=== PATIENT | female | born 1985 | race Caucasian/White ===

== ENCOUNTER 2016-11-23 11:21 | Emergency (ER) | payer MEDICAID, OTHER ==
[~2016-11-23] VITALS: Ht 165.1 cm; Wt 72.6 kg
[~2016-11-23 11:21] MED LIST: PREN-234 PO
[2016-11-23 11:34] VITALS: BP 149/89
--- NOTE | 2016-11-23 11:39 | NUR ---
Patient ambulated to bed 4. RN evaluating patient at bedside.
--- NOTE | 2016-11-23 11:40 | NUR ---
Dr. Lombardo evaluating patient at bedside.
[2016-11-23] MEDS ORDERED: KETOROLAC 60 MG/2 ML VIAL IM ONE (11:45)
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
--- NOTE | 2016-11-23 12:10 | NUR ---
Patient discharged with v/s stable. Written and verbal after care instructions given and explained. Patient alert, oriented and verbalized understanding of instructions. Ambulatory with steady gait. All questions addressed prior to discharge. ID band removed. Patient advised to follow up with PMD. Rx of MOTRIN,BACTRIM AND KEFLEX given. Patient educated on indication of medication including possible reaction and side effects. Opportunity to ask questions provided and answered.ADVISED PT NOT TO PRICK HER PIMPLES TO AVOID INFECTION;
[2016-11-23 12:12] VITALS: BP 149/89
== END 2016-11-23 12:10 | disposition home or self-care (01) ==
LOC: MED 11:21
DX: K13.0 Diseases of lips (principal); F17.210 Nicotine dependence, cigarettes, uncomplicated; Z90.49 Acquired absence of other specified parts of digestive tract
CPT/HCPCS: 96372; 99283; J1885

== ENCOUNTER 2016-11-27 22:37 | Emergency (ER) | payer OTHER ==
[~2016-11-27] VITALS: Ht 165.1 cm; Wt 72.6 kg
[2016-11-27 22:53] VITALS: BP 114/70
--- NOTE | 2016-11-27 23:18 | NUR ---
PT TAKEN TO [facility] FROM [facility]
--- NOTE | 2016-11-27 23:25 | NUR ---
PT RETURN FROM XRAY
--- NOTE | 2016-11-28 00:42 | NUR ---
PT TAKEN TO BED 6
--- NOTE | 2016-11-28 00:44 | NUR ---
Dr. Lr evaluating patient at bedside.
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
[2016-11-28] MEDS ORDERED: NEOMYCIN/POLYMYXIN/BACITRACIN OPTH OINT 3.5 GM TUBE OP SCH (00:50)
[2016-11-28] MEDS ORDERED: NEOMYCIN/POLYMYXIN/BACITRACIN 0.9 GM/1 PKT TP ONE (01:06)
[2016-11-28 01:30] VITALS: BP 111/65
--- NOTE | 2016-11-28 01:30 | NUR ---
Patient discharged with v/s stable BY DR. BOUDREAUX. Written and verbal after care instructions given and explained. Patient verbalized understanding. Ambulatory with steady gait. All questions addressed prior to discharge. Advised to follow up with PMD.
== END 2016-11-28 01:30 | disposition home or self-care (01) ==
LOC: MED 22:37
DX: S60.222A Contusion of left hand, initial encounter (principal); S50.311A Abrasion of right elbow, initial encounter; S80.211A Abrasion, right knee, initial encounter; V89.9XXA Person injured in unspecified vehicle accident, initial encounter; Y93.89 Activity, other specified; Y92.89 Other specified places as the place of occurrence of the external cause; Y99.8 Other external cause status
CPT/HCPCS: 73130; 99284

== ENCOUNTER 2017-01-19 16:13 | Emergency (ER) | payer MEDICAID, OTHER ==
[~2017-01-19] VITALS: Ht 160 cm; Wt 95.0 kg
[2017-01-19 16:18] VITALS: BP 149/89
--- NOTE | 2017-01-19 17:53 | NUR ---
Patient transferred to bed 8 via wheelchair by tech, accompanied by family. DISCHARGE DOOR OPERATOR evaluating patient at bedside.
--- NOTE | 2017-01-19 18:13 | NUR ---
31/ c/o left ankle pain s/p slip and fall yesterday. Swelling noted to left ankle. CMS intact. Patient is AOx4, VSS.
[2017-01-19 18:17] VITALS: BP 128/81
--- NOTE | 2017-01-19 18:18 | NUR ---
Patient discharged with v/s stable. Written and verbal after care instructions given and explained. Patient alert, oriented and verbalized understanding of instructions. Ambulatory with steady gait. All questions addressed prior to discharge. ID band removed. Patient advised to follow up with PMD. Rx of MOTRIN 800 MG TID PO given. Patient educated on indication of medication including possible reaction and side effects. Opportunity to ask questions provided and answered.
== END 2017-01-19 18:18 | disposition home or self-care (01) ==
LOC: MED 16:13
DX: S93.402A Sprain of unspecified ligament of left ankle, initial encounter (principal); W01.0XXA Fall on same level from slipping, tripping and stumbling without subsequent striking against object, initial encounter; Y93.89 Activity, other specified; Y92.89 Other specified places as the place of occurrence of the external cause; Y99.8 Other external cause status
CPT/HCPCS: 73610; 81002; 81025; 99284

== ENCOUNTER 2017-03-19 09:18 | Emergency (ER) | payer MEDICAID ==
[~2017-03-19] VITALS: Ht 165.1 cm; Wt 104.3 kg
[2017-03-19 09:41] VITALS: BP 155/91
--- NOTE | 2017-03-19 09:47 | NUR ---
Patient ambulated to bed 6. RN evaluating patient at bedside.
--- NOTE | 2017-03-19 09:50 | NUR ---
PT PRESENTS TO ER FOR EVALUATION OF ABSCESS TO LEFT FOREARM X4 DAYS. DENIES N/V/D; SKIN IS PINK/WARM/DRY; AAOX4 WITH EVEN AND STEADY GAIT; LUNGS CLEAR BL; HR EVEN AND REGULAR; PT DENIES ANY FEVER, CP, SOB, OR COUGH AT THIS TIME; PATIENT STATES PAIN OF 10/10 AT THIS TIME; VSS; PATIENT POSITIONED FOR COMFORT; HOB ELEVATED; BEDRAILS UP X2; BED DOWN. ER MD MADE AWARE OF PT STATUS.
--- NOTE | 2017-03-19 10:21 | NUR ---
Dr. Sim evaluating patient at bedside.
[2017-03-19 10:37] VITALS: BP 158/95
--- NOTE | 2017-03-19 10:37 | NUR ---
Patient discharged with v/s stable. Written and verbal after care instructions given and explained. Patient alert, oriented and verbalized understanding of instructions. Ambulatory with steady gait. All questions addressed prior to discharge. ID band removed. Patient advised to follow up with PMD. Rx of BACTRIM, KEFLEX given. Patient educated on indication of medication including possible reaction and side effects. Opportunity to ask questions provided and answered.
== END 2017-03-19 10:37 | disposition home or self-care (01) ==
LOC: MED 09:18
DX: L03.114 Cellulitis of left upper limb (principal)
CPT/HCPCS: 99284

== ENCOUNTER 2017-03-27 15:32 | Emergency (ER) | payer MEDICAID ==
[~2017-03-27] VITALS: Ht 165.1 cm; Wt 104.3 kg
[2017-03-27 15:48] VITALS: BP 154/96
--- NOTE | 2017-03-27 15:59 | NUR ---
Patient ambulated to bed 6. RN evaluating patient at bedside.
--- NOTE | 2017-03-27 16:00 | NUR ---
PT PRESENTS TO ER FOR EVALUATION OF ABSCESS TO LEFT FOREARM X2 WEEKS.AAOX4 WITH EVEN AND STEADY GAIT; LUNGS CLEAR BL; HR EVEN AND REGULAR; PT DENIES ANY FEVER, CP, SOB, OR COUGH AT THIS TIME; PATIENT STATES PAIN OF 0/10 AT THIS TIME; VSS; PATIENT POSITIONED FOR COMFORT; HOB ELEVATED; BEDRAILS UP X2; BED DOWN. ER MD MADE AWARE OF PT STATUS.
--- NOTE | 2017-03-27 16:07 | NUR ---
Patient being evaluated by DR KO at bedside.
[2017-03-27] MEDS ORDERED: LIDOCAINE 1% 500 MG/50 ML VIAL INJ ONE (16:10)
--- NOTE | 2017-03-27 16:20 | NUR ---
I&D TO [facility] DONE BY DR KO. PT TOLERATED PROCEDURE WELL.
--- NOTE | 2017-03-27 16:24 | NUR ---
WOUND DRESSING DONE BY ASHLEY TORRES.
[2017-03-27 16:28] VITALS: BP 154/96
--- NOTE | 2017-03-27 16:29 | NUR ---
Note bernard in ED - 03/27/17 at 1630 by [facility] Patient discharged with v/s stable. Written and verbal after care instructions given and explained. Patient verbalized understanding. Ambulatory with steady gait. All questions addressed prior to discharge. Advised to follow up with PMD.
--- NOTE | 2017-03-27 16:30 | NUR ---
Patient discharged with BP 164/96; DENIES HEADACHE OR DIZZINESS AT THIS TIME; MD MADE AWARE. Written and verbal after care instructions given and explained. Patient verbalized understanding. Ambulatory with steady gait. All questions addressed prior to discharge. Advised to follow up with PMD.
== END 2017-03-27 16:30 | disposition home or self-care (01) ==
LOC: MED 15:32
DX: L02.414 Cutaneous abscess of left upper limb (principal); F15.10 Other stimulant abuse, uncomplicated
CPT/HCPCS: 10060; 99283; J2001

== ENCOUNTER 2017-03-31 15:22 | Emergency (ER) | payer MEDICAID ==
[~2017-03-31] VITALS: Ht 165.1 cm; Wt 104.3 kg
[2017-03-31 15:40] VITALS: BP 155/96
[2017-03-31 17:20] VITALS: BP 155/96
== END 2017-03-31 17:21 | disposition home or self-care (01) ==
LOC: MED 15:22
DX: Z48.01 Encounter for change or removal of surgical wound dressing (principal)
CPT/HCPCS: 99283

== ENCOUNTER 2017-07-11 15:52 | Emergency (ER) | payer SELFPAY ==
[~2017-07-11] VITALS: Ht 162.6 cm; Wt 94.0 kg
--- NOTE | 2017-07-11 16:50 | NUR ---
NO ANSWER IN ER LOBBY
[2017-07-11 17:07] VITALS: BP 156/89
[2017-07-11] MEDS ORDERED: NACL 0.9% 2,500 ML IV ONE (19:25)
[2017-07-11] MEDS ORDERED: ACETAMINOPHEN EXTRA STRENGTH 500 MG TAB PO ONE (19:25)
[2017-07-11] MEDS ORDERED: VANCOMYCIN 1,000 MG in DEXTROSE 5% 250 ML IV ONE (19:25)
--- NOTE | 2017-07-11 19:48 | NUR ---
PATIENT LEFT WITHOUT BEING SEEN BY DR. BOB. NO FURTHER CARE PROVIDED FOR PATIENT.
== END 2017-07-11 19:48 | disposition left against medical advice (07) ==
LOC: MED 15:52
DX: R50.9 Fever, unspecified (principal); Z53.21 Procedure and treatment not carried out due to patient leaving prior to being seen by health care provider

== ENCOUNTER 2017-07-12 23:14 | Emergency (ER) | payer SELFPAY ==
[~2017-07-12] VITALS: Ht 165.1 cm; Wt 94.3 kg
[2017-07-12 23:17] VITALS: BP 143/78
--- NOTE | 2017-07-12 23:22 | NUR ---
TO LOBBY, A/W DAMIEN GARAY ERMD NOTED
--- NOTE | 2017-07-13 00:50 | NUR ---
PATIENT LEFT WITHOUT BEING SEEN BY DR. Headley. NO FURTHER CARE PROVIDED FOR PATIENT.
== END 2017-07-13 00:50 | disposition left against medical advice (07) ==
LOC: MED 23:14
DX: L02.414 Cutaneous abscess of left upper limb (principal); Z53.21 Procedure and treatment not carried out due to patient leaving prior to being seen by health care provider

== ENCOUNTER 2017-07-14 12:38 | Emergency (ER) | payer SELFPAY ==
[~2017-07-14] VITALS: Ht 165.1 cm; Wt 93.0 kg
--- NOTE | 2017-07-14 12:44 | NUR ---
NO ANSWER IN ER [id number]
[2017-07-14 13:06] VITALS: BP 118/55
--- NOTE | 2017-07-14 16:27 | NUR ---
CALLED TO A BED NO ANSWER
--- NOTE | 2017-07-14 17:56 | NUR ---
SITTING OUTSIDE TRIAGE WAITING FOR ROOM AVAILABLE FOR MD LACY
--- NOTE | 2017-07-14 18:19 | NUR ---
Patient ambulated to bed 12. RN evaluating patient at bedside.
--- NOTE | 2017-07-14 18:25 | NUR ---
PATIENT PRESENTS TO ED WITH C/O PAIN/REDNESS/SWELLING INCREASED TO L FOREARM, ABSCESS SITE X 1 WK;HX OF IVDA, HEP C;DENIES ANY NUMBNESS / TINGLING SENSATION ON LT ARM;DENIES N/V/D; SKIN IS PINK/WARM/DRY; AAOX4 WITH EVEN AND STEADY GAIT; LUNGS CLEAR BL; HR EVEN AND REGULAR; PT DENIES ANY FEVER, CP, SOB, OR COUGH AT THIS TIME; PATIENT STATES PAIN OF 10/10 AT THIS TIME;PATIENT POSITIONED FOR COMFORT; HOB ELEVATED; BEDRAILS UP X2; BED DOWN. ER MD MADE AWARE OF PT STATUS.
--- NOTE | 2017-07-14 19:30 | NUR ---
REPORT GIVEN TO MATHEW DUMONT.
[2017-07-14] MEDS ORDERED: LIDOCAINE 1% ***ER ONLY *** 10 MG/ML VIAL INJ ONE (20:10)
[2017-07-14] MEDS ORDERED: NACL 0.9% 1,000 ML IV ONE (20:10)
[2017-07-14] MEDS ORDERED: ACETAMINOPHEN EXTRA STRENGTH 500 MG TAB PO ONE (20:10)
[2017-07-14] MEDS ORDERED: VANCOMYCIN 1,000 MG in DEXTROSE 5% 250 ML IV ONE (20:10)
[2017-07-14 20:54] LABS: BASOPHILS # (AUTO) 0.1 K/uL (0.00-0.22); EOSINOPHILS # (AUTO) 0.3 K/uL (0-0.4); HEMATOCRIT 45.6 % (36-48); HEMOGLOBIN 14.5 g/dL (12.0-16.0); LYMPHOCYTES # (AUTO) 1.2 K/uL (2.5-16.5); MEAN CORPUSCULAR HEMOGLOBIN 26 pg (27-31); MEAN CORPUSCULAR HGB CONC 32 g/dL (33-37); MEAN CORPUSCULAR VOLUME 81 fL (80-94); MONOCYTES # (AUTO) 0.7 K/uL (0.8-1.0); NEUTROPHILS # (AUTO) 3.4 K/uL (1.8-7.7); PLATELET COUNT (AUTO) 140 K/uL (140-450); RED BLOOD CELL COUNT(AUTO) 5.64 MIL/uL (4.20-5.40); WHITE BLOOD COUNT (AUTO) 5.7 K/uL (4.8-10.8)
[2017-07-14] MEDS ORDERED: VANCOMYCIN 1,000 MG VIAL ONE (20:57)
[2017-07-14] MEDS ORDERED: LIDOCAINE/EPI 2% 1:100000 20 ML VIAL INJ ONE (20:58)
[2017-07-14 21:22] LABS: ALBUMIN 3.1 g/dL (3.4-5.0); ANION GAP 10.7 (8-16); CARBON DIOXIDE 30.3 mmol/L (21-32); CREATININE 0.7 mg/dL (0.6-1.3); TOTAL BILIRUBIN 2.5 mg/dL (0.0-1.0)
[2017-07-14] MEDS ORDERED: ONDANSETRON 4 MG/2 ML VIAL ONE (22:37)
--- NOTE | 2017-07-14 22:50 | NUR ---
IV removed, catheter intact and site benign. Applied folded 4x4 gauze and tape to stop bleeding.
--- NOTE | 2017-07-14 23:00 | NUR ---
Patient discharged with v/s stable. Written and verbal after care instructions given and explained. Patient alert, oriented and verbalized understanding of instructions. Ambulatory with steady gait. All questions addressed prior to discharge. ID band removed. Patient advised to follow up with PMD. Rx of KEFLEX, MOTRIN AND BACTRIM DS given. Patient educated on indication of medication including possible reaction and side effects. Opportunity to ask questions provided and answered.
[2017-07-14 23:05] VITALS: BP 139/78
== END 2017-07-14 23:00 | disposition home or self-care (01) ==
LOC: MED 12:38
DX: L03.114 Cellulitis of left upper limb (principal); L02.414 Cutaneous abscess of left upper limb
CPT/HCPCS: 10060; 36415; 80053; 83605; 85025; 87040; 96365; 99284; J2001; J2405; J3370; J7030

== ENCOUNTER 2019-12-15 22:09 | Emergency (ER) | payer OTHER ==
[~2019-12-15] VITALS: Ht 165.1 cm; Wt 81.6 kg
[2019-12-15 22:16] VITALS: BP 144/95
--- NOTE | 2019-12-15 22:22 | NUR ---
PT TAKEN TO BED 11
--- NOTE | 2019-12-15 22:30 | NUR ---
DR WEI AT BEDSIDE
[2019-12-15] MEDS ORDERED: LIDOCAINE MPF 1% 5 ML ONE (22:34)
[2019-12-15] MEDS ORDERED: LIDOCAINE MPF 1% 10 MG/ML VIAL INJ ONE (22:35)
[2019-12-15] MEDS ORDERED: SULFAMETH/TRIMETH DS 800/160MG 1 TAB PO ONE (22:35)
[2019-12-15] MEDS ORDERED: CEPHALEXIN 500 MG CAP PO ONE (22:35)
[2019-12-15] MEDS ORDERED: IBUPROFEN 800 MG TAB PO ONE (22:35)
--- NOTE | 2019-12-15 22:35 | NUR ---
SET UP FOR I & D AT BEDSIDE
--- NOTE | 2019-12-15 22:40 | NUR ---
PT IS AN IV DRUG USER, LAST USED 12/14/19, COMING IN TODAY DUE TO A LARGE ABSCESS TO RAC, RLQ, L ABD, AND VAGINAL AREA. L ABD ABSCESS IS OPEN AND DRAINING, PURULENT DISCHARGE NOTED. ALL OTHER SITES ARE HARD, CLOSED, RED, SWOLLEN, AND PAINFUL. PT AFEBRILE, NO N/V, OR DIARRHEA. GURNEY IN LOWEST POSITION, SIDE RAIL UP X 1 NKA NO MED HX
--- NOTE | 2019-12-15 23:00 | NUR ---
Patient discharged with v/s stable. Written and verbal after care instructions given and explained. Patient alert, oriented and verbalized understanding of instructions. Ambulatory with steady gait. All questions addressed prior to discharge. ID band removed. Patient advised to follow up with PMD. Rx of KEFLEX AND BACTRIM DS given. Patient educated on indication of medication including possible reaction and side effects. Opportunity to ask questions provided and answered.
[2019-12-15 23:01] VITALS: BP 144/95
== END 2019-12-15 23:00 | disposition home or self-care (01) ==
LOC: MED 22:09
DX: L02.413 Cutaneous abscess of right upper limb (principal); L02.211 Cutaneous abscess of abdominal wall; L02.828 Furuncle of other sites; F19.10 Other psychoactive substance abuse, uncomplicated; F15.90 Other stimulant use, unspecified, uncomplicated; F11.90 Opioid use, unspecified, uncomplicated; Z86.19 Personal history of other infectious and parasitic diseases
CPT/HCPCS: 10060; 99284; J2001; 12001